=== PATIENT | male | born 1990 | race Caucasian/White ===

== ENCOUNTER 2018-08-20 20:51 | Emergency (ER) | payer OTHER ==
[~2018-08-20] VITALS: Ht 198.1 cm; Wt 145.2 kg
[2018-08-20 21:44] LABS: ABSOLUTE EOSINOPHILS 0.1 thou/uL (0.0-0.7); ABSOLUTE LYMPHOCYTES 2.2 thou/uL (0.8-5.3); ABSOLUTE MONOCYTES 0.6 thou/uL (0.0-1.2); ABSOLUTE NEUTROPHILS 4.6 thou/uL (1.6-8.1); BASOPHILS 0.6 %; EOSINOPHILS 1.1 %; LYMPHOCYTES 29.4 %; MCH 29.2 pg (26.0-34.0); MCHC 34.1 g/dL (28.0-37.0); MCV 85.4 fL (80.0-100.0); MONOCYTES 8.1 %; MPV 9.7 fl. (7.2-11.1); NUCLEATED RBCS 0 /100WBC; PLATELET COUNT* 185 thou/uL (150-400); POLYS 60.8 %; RBC 5.15 mil/uL (4.50-6.00); RDW-CV 12.5 % (10.5-14.5); WBC 7.5 thou/uL (4.0-11.0)
[2018-08-20 21:47] LABS: ANION GAP 9 mmol/L (7-16); BUN 14 mg/dL (7-18); CALCIUM 8.8 mg/dL (8.5-10.1); CHLORIDE 103 mmol/L (98-107); CO2 25 mmol/L (21-32); CREATININE 1.2 mg/dL (0.6-1.3); GLUCOSE 95 mg/dL (70-99); POTASSIUM 3.6 mmol/L (3.5-5.1); SODIUM 137 mmol/L (136-145)
[2018-08-20 21:55] LABS: ALBUMIN 3.8 g/dL (3.4-5.0); ALKALINE PHOSPHATASE 49 U/L (46-116); LIPASE 153 U/L (73-393); SGOT 73 U/L (15-37); SGPT 77 U/L (30-65); TOTAL BILIRUBIN 0.3 mg/dL (<0.1-1.0); TOTAL PROTEIN 7.4 g/dL (6.4-8.2); TROPONIN-I LEVEL <0.06 ng/mL (<0.06)
[2018-08-20 22:22] LABS: URINE BILIRUBIN NEGATIVE (Negative); URINE BLOOD NEGATIVE (Negative); URINE CLARITY CLEAR; URINE COLOR YELLOW; URINE GLUCOSE-RANDOM NEGATIVE (Negative); URINE KETONES NEGATIVE (Negative); URINE LEUKOCYTES-REFLEX NEGATIVE (Negative); URINE NITRITE-REFLEX NEGATIVE (Negative); URINE PROTEIN TRACE (Negative); URINE SPECIFIC GRAVITY >= 1.030 (1.005-1.030); URINE UROBILINOGEN 0.2 E.U./dl (0.2-1.0)
[2018-08-20 22:45] LABS: BE 0.3 mmol/L (-2 to +3); HCO3 24.3 mmol/L (22.0-26.0); PCO2 37.6 mmHg (35.0-45.0); pH 7.428 (7.340-7.450)
[2018-08-20 22:47] LABS: PO2 55.3 mmHg (75.0-100.0)
[2018-08-21 00:48] VITALS: BP 113/49
--- NOTE | 2018-08-21 10:05 | EKG ---
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
== END 2018-08-21 00:51 | disposition home or self-care (01) ==
LOC: M.ERS 20:51
PROVIDERS: Personal Emergency Response Attendant
DX: F41.9 Anxiety disorder, unspecified (principal); R07.89 Other chest pain